=== PATIENT | female | born 1975 | race Caucasian/White ===

== ENCOUNTER 2021-01-30 13:14 | Emergency (ER) | payer OTHER, SELFPAY ==
[2021-01-30 13:30] VITALS: BP 134/76; PULSE 100; RESP 20; TEMP 36.6; O2SAT 99
--- NOTE | 2021-01-30 13:37 | ED.URI ---
HPI - URI/Sore Throat General Chief Complaint: Upper Respiratory Infection Stated Complaint: sore throat, achy, fatigue Time Seen by Provider: 01/30/21 13:37 Source: patient and RN notes reviewed Mode of arrival: ambulatory Limitations: no limitations History of Present Illness HPI Narrative: 45-year-old female presents to the [facility] with complaints of body aches, sore throat, headache. A coworker was diagnosed with Covid recently. He denies fevers, chest pain, shortness of breath. No abdominal pain, nausea, vomiting or diarrhea. Related Data Home Medications Medication Instructions Recorded Confirmed trazodone 100 mg PO HS 10/24/19 01/30/21 amitriptyline 75 mg PO DAILY 01/30/21 01/30/21 tizanidine 4 mg PO TID PRN 01/30/21 01/30/21 Allergies Allergy/AdvReac Type Severity Reaction Status Date / Time No Known Allergies Allergy Verified 01/30/21 13:48 Review of Systems Review of Systems: Narrative: CONSTITUTIONAL: Denies fever. Reports chills and sweats. EYES: Denies visual changes, redness, or discharge. ENT: Reports rhinorrhea, congestion, sore throat, or otalgia. CARDIOVASCULAR: Denies chest pain, palpitations, or edema. RESPIRATORY: Denies cough or dyspnea. GASTROINTESTINAL: Denies abdominal pain, nausea, vomiting, or diarrhea. GENITOURINARY: Denies dysuria or hematuria. SKIN: Denies rash or itching. MUSCULOSKELETAL: Denies back pain, joint pain. Reports generalized muscle pain PSYCHIATRIC: Denies anxiety or depression. All other systems reviewed are negative, except as documented in HPI. PMFSH Comments At the time of my signature, I reviewed and agree with the nursing past medical, surgical, social, and family history. There is no relevant family history pertinent to the patient complaint. Exam Narrative: Exam Narrative: GENERAL: This is a well-nourished, well-developed patient, in no apparent distress. HEAD: normocephalic, atraumatic. EYES: PERRL. Sclera clear/white. Vision is grossly intact. EARS: External ears normal, auditory canals clear and without drainage, TMs normal without perforation. Hearing grossly intact. NOSE: External nose normal with clear nasal discharge, nares without redness. THROAT: Mucous membranes moist, posterior pharynx clear. NECK: Neck supple, non-tender without lymphadenopathy, masses or thyromegaly. CARDIOVASCULAR: Regular rate and rhythm without murmurs, gallops, or rubs. RESPIRATORY: Clear to auscultation. Breath sounds equal bilaterally. No wheezes, rales, or rhonchi. GASTROINTESTINAL: Abdomen soft, non-tender, nondistended. SKIN: warm, intact with no suspicious lesions or rash, good texture and turgor. NEURO: awake, alert, and oriented to person, place and time. There were no obvious focal neurologic abnormalities. EXTREMITIES: No joint tenderness, effusion, or edema noted. BACK: Nontender without deformity. Course Vital Signs Vital signs: Vital Signs Temperature 98 F 01/30/21 13:30 Pulse Rate 100 01/30/21 13:30 Respiratory Rate 20 01/30/21 13:30 Blood Pressure 134/76 01/30/21 13:30 Pulse Oximetry 99 01/30/21 13:30 Temperature 98 F 01/30/21 13:30 Pulse Rate 100 01/30/21 13:30 Respiratory Rate 20 01/30/21 13:30 Blood Pressure 134/76 01/30/21 13:30 Pulse Oximetry 99 01/30/21 13:30 Reviewed MDM - URI/Sore Throat MDM Narrative Medical decision making narrative: Discharge instructions reviewed with patient, as well as provided in writing per nursing staff. The instructions also include specific and strict return/GO TO THE ER as well as f/u information. All questions have been answered, and the patient deny any further questions with discharge and discharge plan. Differential Diagnosis Differential diagnosis: Likely sinusitis, viral infection, bronchitis, influenza and pharyngitis Lab Data Labs: Lab Results 01/30/21 Range/Units 13:52 SARS-CoV-2 RNA (RT-PCR) Pending Strep Screen Presumptive Negat
[2021-01-31 18:33] LABS: SARS-CoV-2 RNA PCR Negative
== END 2021-01-30 14:05 | disposition home or self-care (01) ==
PROVIDERS: Emergency Provider Nurse Practitioner
DX: J06.9 Acute upper respiratory infection, unspecified (principal); Z20.822 Contact with and (suspected) exposure to COVID-19; K21.9 Gastro-esophageal reflux disease without esophagitis
CPT/HCPCS: 87081; 87880; 99213; C9803; G0463; U0003; U0005

== ENCOUNTER 2021-06-18 15:04 | Emergency (ER) | payer OTHER, SELFPAY ==
[2021-06-18 15:10] VITALS: BP 124/83; PULSE 110; RESP 18; TEMP 36.7; O2SAT 100
--- NOTE | 2021-06-18 15:15 | ED.EAR ---
HPI - Ear Problem General Chief complaint: Ear Stated complaint: ear infection Time Seen by Provider: 06/18/21 15:15 Source: patient Mode of arrival: ambulatory Limitations: no limitations History of Present Illness HPI Narrative: Gabriela Wilhelm is a 46 yo female who had recent shoulder surgery, [facility] her right ear. Her ear is painful since she had water in it from the [place] and her lips got sunburned and have not broken out in large fever blisters Related Data Home Medications Medication Instructions Recorded Confirmed trazodone 100 mg PO HS 10/24/19 06/18/21 amitriptyline 75 mg PO DAILY 01/30/21 06/18/21 tizanidine 4 mg PO TID PRN 01/30/21 06/18/21 esomeprazole magnesium [Nexium] 40 mg PO DAILY 06/18/21 06/18/21 oxycodone-acetaminophen 1 tablet PO Q6H PRN 06/18/21 06/18/21 Allergies Allergy/AdvReac Type Severity Reaction Status Date / Time No Known Allergies Allergy Verified 06/18/21 15:21 Review of Systems Review of Systems: CONSTITUTIONAL: Denies fever, chills, sweats. EYES: Denies visual changes, redness, discharge. ENT: Denies rhinorrhea, congestion, sore throat, R otalgia.Fever blisters of mouth CARDIOVASCULAR: Denies chest pain, palpitations, edema. RESPIRATORY: Denies dyspnea, wheezing, cough GASTROINTESTINAL: Denies abdominal pain, nausea, vomiting, diarrhea. GENITOURINARY: Denies dysuria, hematuria, abnormal discharge SKIN: Denies rash or itching. NEUROLOGIC: Denies numbness, or focal weakness. PSYCHIATRIC: Denies anxiety or depression. [facility] Past Medical History Medical History Bladder pain GERD (gastroesophageal reflux disease) Surgical History Surgical History History of arthroscopy of shoulder Social History Social History (Updated 06/18/21 @ 15:35 by Bree Avina CNP) Smoking status: Never smoker Alcohol intake: current Comments At time of signature, I agree with nursing past medical, surgical, social and family history. There is no relevant family history pertinent to the presenting complaint. Exam Narrative: GENERAL: This is a well-nourished, well-developed patient, in mild distress. HEAD: normocephalic, atraumatic. EYES: . Sclera clear/white. Vision is grossly intact. EARS: External ears normal, auditory canal L clear and R erythema without drainage, TMs normal without perforation. Hearing grossly intact. NOSE: External nose normal without nasal discharge, nares without redness, no rhinorrhea. THROAT: Mucous membranes moist, posterior pharynx pink, clustered fever blisters on lower lip and upper lip NECK: Neck supple, CARDIOVASCULAR: Regular rate and rhythm without murmurs, gallops, or rubs. RESPIRATORY: Clear to auscultation. Breath sounds equal bilaterally. No wheezes, rales, or rhonchi. GASTROINTESTINAL: Abdomen soft, non-tender, SKIN: warm, intact with no suspicious lesions or rash, good texture and turgor. NEURO: awake, alert, and oriented to person, place and time. There were no obvious focal neurologic abnormalities. Steady gait EXTREMITIES: Normal range of motion. BACK: Nontender without deformity Course Course Emergency Course: Patient comes with ear pain and fever blisters of lips Started on eardrops and acyclovir cream for mouth Vital Signs Vital signs: Vital Signs Temperature 98.0 F 06/18/21 15:10 Pulse Rate 110 H 06/18/21 15:10 Respiratory Rate 18 06/18/21 15:10 Blood Pressure 124/83 06/18/21 15:10 Pulse Oximetry 100 06/18/21 15:10 Temperature 98.0 F 06/18/21 15:24 Pulse Rate 110 H 06/18/21 15:24 Respiratory Rate 18 06/18/21 15:24 Blood Pressure 124/83 06/18/21 15:24 Pulse Oximetry 100 06/18/21 15:24 Medical Decision Making Differential Diagnosis Differential Diagnosis: Otitis media versus otitis externa versus malignant otitis externa versus HSV of the mouth ve
[2021-06-18 15:24] VITALS: BP 124/83; PULSE 110; RESP 18; TEMP 36.7; O2SAT 100
== END 2021-06-18 15:44 | disposition home or self-care (01) ==
PROVIDERS: Emergency Provider Nurse Practitioner
DX: B00.1 Herpesviral vesicular dermatitis (principal); H60.311 Diffuse otitis externa, right ear; K21.9 Gastro-esophageal reflux disease without esophagitis
CPT/HCPCS: 99213; G0463

== ENCOUNTER 2024-10-12 13:39 | Outpatient (CLI) | payer OTHER, SELFPAY | END 2024-10-12 13:40 | disposition home or self-care (01) | LOC: ANHSURGERY 13:44 | PROVIDERS: PCP Internal Medicine; Visit Provider Obstetrics & Gynecology | DX: N93.9 Abnormal uterine and vaginal bleeding, unspecified (principal) | CPT/HCPCS: 36415; 86850; 86900; 86901 ==

== ENCOUNTER 2024-10-19 00:09 | Day surgery (SDC) | payer OTHER, SELFPAY ==
[2024-10-07 12:42] VITALS: BMI 32.0
--- NOTE | 2024-10-07 12:43 | PC.NURSE ---
Report to the Outpatient Waiting Room, entrance under the green pavilion located off [facility], at time _1000_ on date _[id number]_. Planned Procedure Time: _1200_.? Time changes happen often and if your time is changed the preop area will call you the afternoon before. - You and your visitor will be asked to self-screen and do not enter if you have any COVID symptoms. Please call surgeon if you need to reschedule. - A mask is optional within the hospital at this time. Patients may have clear liquids (water, carbonated beverages, clear teas, apple juice) until 3 hours prior to surgery with a maximum of 20 ounces. - No food from midnight until time of surgery and no smoking. This includes no chewing gum, candy or mints. Take only the following medications with a SIP of water on the morning of surgery: ____None DO NOT STOP ANY OF YOUR OTHER PRESCRIPTION MEDICATIONS PRIOR TO SURGERY EXCEPT THE FOLLOWING Medications to discontinue per physician Aspirin Please check with Dr Barber if OK to take. Date to take last dose Please no make-up, nail estonian, hairspray, perfume, deodorant, or body powder the day of surgery.? No jewelry (including any body piercings) or valuables the day of surgery, leave them at home.? Please take a shower or bath the night before, or the morning of, surgery with an antibacterial soap.? Wear comfortable, loose fitting clothing.? - Jewelry must be removed prior to entering the operating room.? Rings and piercings that are not removed may be cut off. - The hospital will not accept responsibility for valuables.? - Please leave all valuables, including medications, at home the day of surgery. If you are going home after surgery, a licensed milk wagon driver must drive you home.? - NO public transportation without another adult if you receive anesthesia. - We recommend that an adult stay with you for 24 hours following discharge. - We also recommend that you do not drive, make important decision, drink alcoholic beverages, or take any drugs that were not prescribed by your health care provider for at least 24 hours after your discharge time. Follow any additional instructions given to you from your surgeon. Telephone instructions given to Burak__and asked if any additional questions and then verbalized understanding. Patient advised to call surgeon office or pre surgery nurse liaison [phone] if any additional questions.
--- NOTE | 2024-10-08 13:19 | PC.NURSE ---
Report to the Outpatient Waiting Room, entrance under the green pavilion located off [facility], at time _1000_ on date _[id number]_. Planned Procedure Time: _1200_.? Time changes happen often and if your time is changed the preop area will call you the afternoon before. - You and your visitor will be asked to self-screen and do not enter if you have any COVID symptoms. Please call surgeon if you need to reschedule. - A mask is optional within the hospital at this time. Patients may have clear liquids (water, carbonated beverages, clear teas, apple juice) until 3 hours prior to surgery with a maximum of 20 ounces. - No food from midnight until time of surgery and no smoking. This includes no chewing gum, candy or mints. Take only the following medications with a SIP of water on the morning of surgery: ____None DO NOT STOP ANY OF YOUR OTHER PRESCRIPTION MEDICATIONS PRIOR TO SURGERY EXCEPT THE FOLLOWING Medications to discontinue per physician Aspirin Date to take last aouy___[id number]____ Please no make-up, nail slovenian, hairspray, perfume, deodorant, or body powder the day of surgery.? No jewelry (including any body piercings) or valuables the day of surgery, leave them at home.? Please take a shower or bath the night before, or the morning of, surgery with an antibacterial soap.? Wear comfortable, loose fitting clothing.? - Jewelry must be removed prior to entering the operating room.? Rings and piercings that are not removed may be cut off. - The hospital will not accept responsibility for valuables.? - Please leave all valuables, including medications, at home the day of surgery. If you are going home after surgery, a licensed rental car ferry driver must drive you home.? - NO public transportation without another adult if you receive anesthesia. - We recommend that an adult stay with you for 24 hours following discharge. - We also recommend that you do not drive, make important decision, drink alcoholic beverages, or take any drugs that were not prescribed by your health care provider for at least 24 hours after your discharge time. Follow any additional instructions given to you from your surgeon. Telephone instructions given to _Gabriela__and asked if any additional questions and then verbalized understanding. Patient advised to call surgeon office or pre surgery nurse liaison [phone] if any additional questions.
--- NOTE | 2024-10-16 11:12 | PM.IMHP ---
H&P: HPI History of Present Illness Date/Time: 10/16/24 11:12 Chief Complaint: stress incontinence Narrative: symptomatic stress incontinence. Desires intervention. We will do this with a concomitant hysterectomy for dysfunctional uterine bleeding Review of Systems Review of Systems: All systems reviewed & are unremarkable except as noted in HPI and below PMFSH Past Medical History Medical History KOJO positive Bladder pain GERD (gastroesophageal reflux disease) Inflammatory arthritis Rotator cuff arthropathy of both shoulders Surgical History Surgical History H/O right knee surgery H/O right wrist surgery H/O shoulder surgery History of arthroscopy of shoulder History of cholecystectomy History of reduction mammoplasty Previous section Family History Family History Mother Depression Thyroid disorder Grandparent Cancer Diabetes mellitus Hypertension Cerebrovascular accident Father Alcoholism Cancer Heart problem Social History Social History Smoking packs per day: 1 Smoking cigarettes per day: 20.0 Years smoked: 15 Smoking pack-years: 15.00 Smoking status: Former smoker Tobacco type: cigarettes Smoking end date: 10/07/12 Alcohol intake: current Alcohol use details: OCCASIONAL Substance use: never Substance use type: does not use Living arrangements: with family Spiritual care concerns: No Meds Home Medications and Allergies Home Medications Medication Instructions Recorded Confirmed Type trazodone 100 mg tablet 100 mg PO HS 10/24/19 10/07/24 History amitriptyline 75 mg tablet 150 mg PO HS 05/15/22 10/07/24 History aspirin 81 mg tablet,delayed 81 mg PO Q48H 10/07/24 10/07/24 History release esomeprazole magnesium 20 mg 20 mg PO DAILY 10/07/24 10/07/24 History capsule,delayed release (Nexium) lubiprostone 24 mcg capsule 24 mcg PO BID 10/07/24 10/07/24 History ondansetron HCl 4 mg tablet 4 mg PO TID PRN Nausea 10/07/24 10/07/24 History pentosan polysulfate sodium 100 mg 100 mg PO TID 10/07/24 10/07/24 History capsule (Elmiron) topiramate 50 mg tablet 50 mg PO BID 10/07/24 10/07/24 History Allergies Allergy/AdvReac Type Severity Reaction Status Date / Time No Known Allergies Allergy Verified 10/07/24 12:30 Exam Narrative: no acute distress alert and oriented x3 urethral hypermobility Assessment and Plan Assessment and plan (1) TIGRE (stress urinary incontinence, female): Code(s): N39.3 - Stress incontinence (female) (male) Status: Acute Assessment and Plan: plan for urethral sling concomitantly with a hysterectomy for dysfunctional uterine bleeding. Understands risks of bleeding, infection, damage surrounding organs, damage to the urinary tract, vaginal mesh extrusion, urinary tract mesh erosion, obstructive voiding requiring secondary procedure, hip and leg pain, dyspareunia. She also understands it will not help and may even exacerbate her chronic pelvic pain. Agrees to proceed
[2024-10-19] VITALS (11 sets, daily range): BP systolic 97–120; BP diastolic 58–88; PULSE 81–103; RESP 11–21; TEMP 36.2–36.8; O2SAT 96–100
--- NOTE | 2024-10-19 07:10 | WPDHPUPDATE1 ---
History and Physical Update Update Date/Time: 10/19/24 07:10 History and Physical has been reviewed, including an updated exam of the patient. There are NO changes in the patient's condition. Risks, benefits, and alternatives have been discussed and questions answered. Patient agrees to proceed with procedure.
[2024-10-19] MEDS: ACETAMINOPHEN 500 MG TABLET 1000 MG PO ×3 (10:51→23:21)
[2024-10-19] MEDS: KETOROLAC 15 MG/ML VIAL (*BKC) IV PUSH (10:53)
[2024-10-19] MEDS: LACTATED RINGERS 1,000 ML 30 ML IV CONT ×3 (10:56→15:05)
--- NOTE | 2024-10-19 11:39 | P.PNAN_ITS ---
Anes - Initial Pre Proc Eval Procedure: Operation Date: 10/19/24 12:00 Proposed Procedures p Urethral Sling - Vinayak Lin MD s Robotic Assisted Laparoscopic Hysterectomy with Bilateral Salpingo- oophorectomy - Gerald Barber MD Date/Time: 10/19/24 11:39 Surgeon: Vinayak Lin MD Pre Op Diagnosis: Stress Incont, Abnormal uterine bleeding Patient Data Age: 49 Gender: F Height: 1.57 m Weight: 81.5 kg Last Vital Signs Temp 36.2 C L 10/19/24 11:12 Pulse 96 10/19/24 11:12 Resp 20 10/19/24 11:12 BP 115/88 10/19/24 11:12 Pulse Ox 100 10/19/24 11:12 O2 Del Method Room Air 10/19/24 11:12 Allergies Allergy/AdvReac Type Severity Reaction Status Date / Time No Known Allergies Allergy Verified 10/07/24 12:30 Home Medications Medication Instructions Recorded Confirmed Type trazodone 100 mg tablet 100 mg PO HS 10/24/19 10/07/24 History amitriptyline 75 mg tablet 150 mg PO HS 05/15/22 10/19/24 History aspirin 81 mg tablet,delayed 81 mg PO Q48H 10/07/24 10/19/24 History release esomeprazole magnesium 20 mg 20 mg PO DAILY 10/07/24 10/19/24 History capsule,delayed release (Nexium) lubiprostone 24 mcg capsule 24 mcg PO BID 10/07/24 10/19/24 History ondansetron HCl 4 mg tablet 4 mg PO TID PRN Nausea 10/07/24 10/07/24 History pentosan polysulfate sodium 100 mg 100 mg PO TID 10/07/24 10/07/24 History capsule (Elmiron) topiramate 50 mg tablet 50 mg PO BID 10/07/24 10/19/24 History Patient hx anesthesia problems: none Family hx anesthesia problems: none Results Review: All pre-operative results and documents have been reviewed as part of the pre- operative evaluation. [facility] Past Medical History Medical History KOJO positive Bladder pain GERD (gastroesophageal reflux disease) Inflammatory arthritis Rotator cuff arthropathy of both shoulders Surgical History Surgical History H/O right knee surgery H/O right wrist surgery H/O shoulder surgery History of arthroscopy of shoulder History of cholecystectomy History of reduction mammoplasty Previous section Family History Family History Mother Depression Thyroid disorder Grandparent Cancer Diabetes mellitus Hypertension Cerebrovascular accident Father Alcoholism Cancer Heart problem Social History Social History Smoking packs per day: 1 Smoking cigarettes per day: 20.0 Years smoked: 15 Smoking pack-years: 15.00 Smoking status: Former smoker Tobacco type: cigarettes Smoking end date: 10/07/12 Alcohol intake: current Alcohol use details: OCCASIONAL Substance use: never Substance use type: does not use Living arrangements: with family Spiritual care concerns: No Anes - Eval Final PreProcedure Day of Procedure 10/19/24 11:39 Patient weight: obese Lungs: normal air movement Neurological: alert and oriented Last oral intake: >/= 8 hours ASA classification: II Emergent: no Anesthetic plan: proceed Anesthesia type and monitoring: general and standard monitoring Results Review: All pre-operative results and documents have been reviewed as part of the pre- operative evaluation. Informed Consent: The patient's anesthetic plan and its attendant risks and benefits were d iscussed with the patient/family/POA. Questions were solicited and answers provided to the satisfaction of the patient/family/POA.
--- NOTE | 2024-10-19 12:22 | P.HP_ITS ---
H&P: HPI History of Present Illness Date/Time: 10/19/24 12:22 Chief Complaint: abnormal uterine bleeding Narrative: This patient is a 49-year-old female with abnormal uterine bleeding. We agreed to perform robotic assisted total hysterectomy with bilateral salpingo- oophorectomy she will also have a suburethral sling placed by Dr. Lin. The patient understands the details of the procedure. The procedure has been explained in detail. She understands the risks. She understands that injuries may occur that result in hospitalization, more surgery, and severe illness. She understands risk of hemorrhage and infection. She denies any chest pain or shortness of breath. She denies any nausea, vomiting, fever, chills. Review of Systems Review of Systems: All systems reviewed & are unremarkable except as noted in HPI and below Constitutional: Constitutional: Denies chills, Denies fatigue, Denies fever(s) and Denies weakness Eyes: Eyes: Denies blurry vision, Denies change in vision, Denies loss of peripheral vision, Denies loss of vision, Denies other visual disturbances and Denies eye pain ENT: Denies vertigo, Denies dizziness, Denies hearing loss, Denies mouth pain, Denies nasal obstruction, Denies neck mass and Denies neck pain Cardiovascular: Cardiovascular: Denies chest pain, Denies diaphoresis, Denies syncope, Denies leg edema and Denies dyspnea Respiratory: Respiratory: Denies chest congestion, Denies cough, Denies hemoptysis, Denies dyspnea and Denies wheezing Gastrointestinal: Gastrointestinal: Denies abdominal pain, Denies constipation, Denies diarrhea, Denies nausea and Denies vomiting Genitourinary: Genitourinary: Denies hematuria, Denies change in libido, Denies nocturia, Denies genital lesions, Denies flank pain and Denies urinary urgency Musculoskeletal: Musculoskeletal: Denies abnormal gait, Denies back pain, Denies myalgias, Denies arthralgias, Denies joint swelling, Denies muscle weakness and Denies neck pain Integumentary/Breasts: Skin/Breast: Denies swelling, Denies breast pain, Denies breast mass, Denies dry skin, Denies nipple discharge, Denies unusual bruising and Denies jaundice Neurologic: Denies Neuro-related abnormal movements, Denies Abnormal speech present, Denies abnormal gait, Denies behavioral changes, Denies confusion, Denies vertigo, Denies dizziness, Denies syncope, Denies loss of vision, Denies memory loss, Denies convulsions and Denies weakness Psychiatric: Psychiatric: Denies abnormal sleep pattern, Denies behavioral changes, Denies change in libido, Denies confusion, Denies depression, Denies anhedonia and Denies memory loss Endocrine: Endocrine: Reports no additional endocrine complaints, Denies change in libido and Denies fatigue Hematologic/Lymphatic: Hematologic/Lymphatic: Reports no additional hematologic/lymphatic complaints Allergic/Immunologic: Allergic/Immunologic: Reports no additional allergic/immunologic complaints and Denies wheezing PMFSH Past Medical History Medical History KOJO positive Bladder pain GERD (gastroesophageal reflux disease) Inflammatory arthritis Rotator cuff arthropathy of both shoulders Surgical History Surgical History H/O right knee surgery H/O right wrist surgery H/O shoulder surgery History of arthroscopy of shoulder History of cholecystectomy History of reduction mammoplasty Previous section Family History Family History Mother Depression Thyroid disorder Grandparent Cancer Diabetes mellitus Hypertension Cerebrovascular accident Father Alcoholism Cancer Heart problem Social History Social History Smoking packs per day: 1 Smoking cigarettes per day: 20.0 Years smoked: 15 Smoking pack-years: 15.00 Smoking status: Former smoker Tobacco type: cigarettes Smoking end date: 10/07/12 Alcohol intake: current Alcohol use details: OCCASIONAL Substance use: never Substance use type: does not use Living arrangements: with family Spiritual care concerns: No Meds Home Medications and Allergies Home Medications Medication Instructions Recorded Confirmed Type trazodone 100 mg tablet 100 mg PO HS 10/24/19 10/07/24 History amitriptyline 75 mg tablet 150 mg PO HS 05/15/22 10/19/24 History aspirin 81 mg tablet,delayed 81 mg PO Q48H 10/07/24 10/19/24 History release esomeprazole magnesium 20 mg 20 mg PO DAILY 10/07/24 10/19/24 History capsule,delayed release (Nexium) lubiprostone 24 mcg capsule 24 mcg PO BID 10/07/24 10/19/24 History ondansetron HCl 4 mg tablet 4 mg PO TID PRN Nausea 10/07/24 10/07/24 History pentosan polysulfate sodium 100 mg 100 mg PO TID 10/07/24 10/07/24 History capsule (Elmiron) topiramate 50 mg tablet 50 mg PO BID 10/07/24 10/19/24 History Allergies Allergy/AdvReac Type Severity Reaction Status Date / Time No Known Allergies Allergy Verified 10/07/24 12:30 Vital Signs Vital Signs - 24 hr 10/19/24 11:12 Temperature 97.1 F L Pulse Rate 96 Respiratory Rate 20 Blood Pressure 115/88 Pulse Oximetry 100 Oxygen Delivery Room Air Exam Const: General: cooperative, healthy appearing, comfortable and no acute distress Orientation/consciousness: oriented to person, oriented to place and oriented to time HENMT: Head: normal to inspection Ears: external ears normal Face/Nose/Sinus: Normal external nose present and normal facial exam Face and sinus: normal facial exam Eyes: General: appearance normal, both eyes and all related structures Neck: Neck: normal visual inspection, trachea midline and supple Resp: Auscultation: clear to auscultation bilaterally, no crackles, no rales, no rhonchi and no wheezes Cardio: Rate: regular rate Rhythm: regular rhythm Heart sounds: no click, no murmurs and no rubs GI: GI Palp: No abdominal tenderness, No Soft to palpation, No Tenderness to palpation present (GI) and No Palpable mass present Auscultation: normal bow el sounds Skin: General skin exam: normal color and no rashes or lesions noted Neuro: General: oriented to person, oriented to place and oriented to time Extrem: General: normal to inspection, no joint enlargement, no clubbing, cyanosis or edema, no pedal edema and no calf tenderness Psych: Appearance: grossly normal Mental Status: mental status grossly n ormal Speech and movement: Normal speech and movement present Assessment and Plan Assessment and plan (1) Abnormal uterine bleeding: Code(s): N93.9 - Abnormal uterine and vaginal bleeding, unspecified Status: Acute Assessment and Plan: This patient is a 49-year-old female with abnormal uterine bleeding. We agreed to perform robotic assisted total hysterectomy with bilateral salpingo- oophorectomy she will also have a suburethral sling placed by Dr. Lin. she understands the risks, benefits, and alternatives. She has completed the informed consent process and is ready to proceed
--- NOTE | 2024-10-19 12:26 | WPDHPUPDATE1 ---
History and Physical Update Update Date/Time: 10/19/24 12:26 History and Physical has been reviewed, including an updated exam of the patient. There are NO changes in the patient's condition. Risks, benefits, and alternatives have been discussed and questions answered. Patient agrees to proceed with procedure.
[2024-10-19] MEDS: ceFAZolin 2 GM/D5W 50 ML 2 GM/50 ML BAG IVPB (12:30)
[2024-10-19] MEDS: BUPIVACAINE/EPINEPHRINE 0.5% 50 ML VIAL 10 ML INFILTRATE (13:24)
--- NOTE | 2024-10-19 14:39 | W.PM.PROC2 ---
Procedure Note - Detailed Date of Procedure 10/19/24 Pre-op Diagnosis Stress Incont, Abnormal uterine bleeding Post-op Diagnosis Same Procedure Performed Robot assisted Total hysterectomy with bilateral Salpingo-oophorectomy. Surgeon Gerald Barber MD Anesthesia General Indications pelvic pain Findings normal-appearing uterus tubes and ovaries. Normal appearing vulva vagina and cervix. Description of Procedure This patient was taken to the operating room. She was prepped and draped in the dorsal lithotomy position after induction of general anesthesia. The uterine manipulator and Colton cup were placed. This was done with a speculum and tenaculum. The speculum was placed. The cervix was grasped with a tenaculum. The stay sutures were placed at 3 and 9:00 a.m.. The stay sutures of 0 Vicryl were tied to the appropriately Size scope after it was slipped around the cervix.. The tip of the JIM manipulator was placed in the intrauterine cavity. The cup was slid into place around the cervix and into the fornices. It was locked into place. The sutures were then wrapped around the handle and tied under tension. A 8 mm skin incision was made in the left upper quadrant the abdomen. a 5 mm Visiport trocar was inserted into abdominal cavity and pneumoperitoneum was achieved. A 8 mm supraumbilical incision was made and a 8 mm trocar was inserted into the intrauterine cavity under direct visualization of the scope. an 8 mm incision was made in the right upper quadrant of the abdomen and an 8 mm robotic trocar was placed the inter uterine cavity under direct visualization the scope. An 11 mm trocar was inserted in the right upper quadrant of the abdomen rectal is a cystoscope after an incision was made there as well. The robot was docked. Electronic Orientation of the robot was performed. Bilateral ureteral lysis was performed. This was done from the pelvic brim down to the uterine artery. This was done with careful dissection using sharp and blunt dissection. The fallopian tubes and ovaries were removed bilaterally. The infundibulopelvic ligament was isolated after identification of the ureter. It was cauterized and transected with the vessel sealer fashion. The mesosalpinx on lateral of the ovary was cauterized transected the vessel sealer. In a stepwise fashion along the lateral aspects of the uterus the round ligament and broad ligaments were cauterized transected down to the level of the uterine arteries. A bladder flap was created in the bladder was moved distally to the end of the cervix and over the Colton cup. The bilateral uterine arteries were cauterized and transected. Colpotomy was then performed. In a circumferential fashion the vagina was transected using unipolar cautery. The incision was made down on the Colton cup. The uterus and cervix were taken out through the vagina. A pneumo occluder was placed in the vagina. The vaginal cuff was closed with a 0 V lock suture in a running fashion. The pelvis was irrigated with copious amounts antibiotic irrigation. The ureters were again examined and found to be intact and flowing freely under the uterine arteries into the bladder. The bladder was intact. It was examined directly. The vagina was irrigated with Betadine solution after removal of the Pneumo occluder. the trocars were removed after the robot was undocked. The skin was closed with subacute or Dermabond. The patient was taken to recovery room. She was stable condition. Sponge lap and needle counts were correct x2. Suburethral sling was performed by Dr. Lin after the hysterotomy Estimated Blood Loss -25.0 Urine Output -125.0 Drains Yes Packing No Pathology Yes Complications No immediate complications Condition Stable Disposition Floor
--- NOTE | 2024-10-19 14:59 | W.PM.PROC2 ---
Procedure Note - Detailed Date of Procedure 10/19/24 Pre-op Diagnosis Stress incontinence Post-op Diagnosis Same Procedure Performed mid urethral sling cystoscopy Surgeon Vinayak Lin MD Anesthesia General Indications This is a female with confirm stress urinary incontinence. She desires surgical correction. She understands the risks of bleeding, infection, injury to the urinary tract, vaginal mesh extrusion, urinary tract mesh erosion, obstructive voiding requiring a secondary procedure, hip and leg pain, dyspareunia, inability to improve overactive bladder symptoms. She agrees to proceed. She is going to do this in combination with hysterectomy for dysfunctional uterine bleeding Description of Procedure I entered the room to perform her procedure after her hysterectomy. She was correctly identified. Informed consent was already obtained. She was given appropriate perioperative antibiotics. A time-out performed. I marked out the site of the inner thigh incisions. I anesthetized the skin and made those incisions. I anesthetized the anterior vaginal wall over the mid urethra. I made a 1 cm incision. I dissected out laterally taking great care not to injure the refilled vaginal wall. I passed the helical trocars. First on the left. Then on the right. I did this from the thigh incision towards the vaginal incision. The sling was connected to the trocars and brought out through the thigh incision. I tensioned the sling appropriately. I cut and the plastic sheaths. I then closed the incision with 2 0 Vicryl. On cystoscopy there is no tumors or surgical artifact. There was no surgical artifact in the urethra. Both ureters were seen to excrete clear yellow urine I cut the excess sling material. Close incisions with glue. She was awakened and transferred to the PACU in stable condition. Implants Urethral sling Estimated Blood Loss 10 Drains No Packing No Pathology None sent Complications No immediate complications Condition Stable Disposition PACU
[2024-10-19] MEDS: SCOPOLAMINE 1 MG PATCH 1 PATCH TRANSDERM (15:05)
[2024-10-19] MEDS: SIMETHICONE 80 MG TAB.CHEW PO (17:32)
[2024-10-19] MEDS: DEXTROSE 5%/0.45% SOD CHL 1,000 ML 125 ML IV CONT (17:32)
[2024-10-19] MEDS: DOCUSATE SODIUM 100 MG CAPSULE PO (17:34)
[2024-10-19] MEDS: KETOROLAC 30 MG/ML VIAL (*BKC) IV PUSH ×2 (17:34→23:22)
--- NOTE | 2024-10-19 18:19 | ADMGEN ---
This patient, Gabriela Wilhelm, was admitted to OB 2nd Floor Room 283-00. Patient/family oriented to hospital policies and general routines including ID bracelet, bed and alarms, visiting hours, pain management, procedures, bathroom and other care routines, personal items, smoking policy, room service/diet, and visiting hours. Information on how to activate the Rapid Response Team has been discussed. Patient/Family are encouraged to report perceived risks to care and to ask questions if they do not understand what they are told or what they should do.
[2024-10-19] MEDS: oxyCODONE HCL (*CRX) 5 MG TAB IR PO (19:40)
[2024-10-19] MEDS: traZODone HCL 50 MG TABLET 100 MG PO (21:34)
[2024-10-19] MEDS: AMITRIPTYLINE HCL 25 MG TABLET 150 MG PO (21:36)
[2024-10-19] MEDS: TOPIRAMATE 25 MG TABLET 50 MG PO (21:36)
[2024-10-20] MEDS: ACETAMINOPHEN 500 MG TABLET 1000 MG PO (04:25)
[2024-10-20] MEDS: KETOROLAC 30 MG/ML VIAL (*BKC) IV PUSH (04:26)
[2024-10-20 04:36] VITALS: BP 114/70; PULSE 103; RESP 20; TEMP 37.1; O2SAT 99
[2024-10-20] MEDS: SIMETHICONE 80 MG TAB.CHEW PO (07:55)
[2024-10-20] MEDS: oxyCODONE HCL (*CRX) 5 MG TAB IR PO (07:55)
[2024-10-20 08:05] VITALS: BP 100/55; PULSE 105; RESP 16; TEMP 37.3; O2SAT 98
[2024-10-20] MEDS: PANTOPRAZOLE 40 MG TABLET PO (08:13)
[2024-10-20] MEDS: DOCUSATE SODIUM 100 MG CAPSULE PO (08:13)
[2024-10-20] MEDS: TOPIRAMATE 25 MG TABLET 50 MG PO (08:13)
[2024-10-20] MEDS: ASPIRIN 81 MG ENTERIC TABLET PO (08:13)
[2024-10-20] MEDS: LUBIPROSTONE 24 MCG CAPSULE PO (08:13)
--- NOTE | 2024-10-20 08:22 | P.PNOB_ITS ---
[employer] - A/P Postoperative Procedures: Procedures Operation Date: 10/19/24 12:00 Actual Procedure Side Surgeon p Urethral Sling Not Applicable Vinayak Lin MD s Robotic Assisted Laparoscopic Hysterectomy with Bilateral Salpingo- oophorectomy Bilateral Gerald Barber MD Postoperative day: 1 Postoperative status: doing well Postoperative plan: see orders Time Spent With Patient Time: Total time spent is greater than 50% in coordination of care (as documented) at patient's floor/unit and/or counseling patient: Time with patient: less than 15 minutes [employer]- PN:Subj Post-Op Subjective Date/time seen: 10/20/24 08:22 Subjective: patient reports feeling better, patient has no complaints and pain is well controlled Exam Const: General: healthy appearing, comfortable and no acute distress Resp: Auscultation: clear to auscultation bilaterally, no rales, no rhonchi and no wheezes Cardio: Rate: regular rate Heart sounds: no click, no murmurs and no rubs GI: Inspection: non-distended Auscultation: normal bowel sounds Extrem: General: normal to inspection, no pedal edema and no calf tenderness [employer] - PN: Obj Data Vital Signs Vital Signs: Vital Signs - 24 hr 10/19/24 11:12 10/19/24 15:05 10/19/24 15:20 Temperature 97.1 F L 97.3 F L Pulse Rate 96 84 85 Respiratory Rate 20 12 21 H Blood Pressure 115/88 117/79 113/77 Pulse Oximetry 100 100 100 Oxygen Delivery Room Air Simple Face Mask Simple Face Mask Oxygen Flow Rate 10 10 10/19/24 15:35 10/19/24 15:50 10/19/24 16:05 Temperature Pulse Rate 86 86 84 Respiratory Rate 11 L 13 12 Blood Pressure 112/75 97/58 L 98/69 L Pulse Oximetry 100 100 100 Oxygen Delivery Room Air Room Air Room Air Oxygen Flow Rate 10/19/24 16:20 10/19/24 16:35 10/19/24 17:00 Temperature 97.8 F Pulse Rate 81 84 83 Respiratory Rate 12 20 17 Blood Pressure 99/67 L 102/72 101/70 Pulse Oximetry 99 99 99 Oxygen Delivery Room Air Room Air Oxygen Flow Rate 10/19/24 17:00 10/19/24 19:42 10/19/24 23:30 Temperature 97.4 F L 98.2 F Pulse Rate 84 96 103 H Respiratory Rate 20 Blood Pressure 120/73 117/84 Pulse Oximetry 99 96 97 Oxygen Delivery Room Air Oxygen Flow Rate 10/20/24 04:36 10/20/24 04:36 Temperature 98.7 F Pulse Rate 103 H 103 H Respiratory Rate 20 Blood Pressure 114/70 Pulse Oximetry 99 99 Oxygen Delivery Room Air Oxygen Flow Rate Intake/Output Intake/Output: Intake & Output 10/17/24 10/18/24 10/19/24 10/20/24 23:59 23:59 23:59 23:59 Intake Total 750 600 Output Total 1400 2200 Balance -650 -1600 Meds/Results Medications: Active Medications Generic Name Dose Route Start Last Admin Trade Name Freq PRN Reason Stop Dose Admin Acetaminophen 1,000 mg 10/19/24 18:00 10/20/24 04:25 Acetaminophen 500 Mg Tablet PO 1,000 mg Q6HR ELIOT Administration Amitriptyline HCl 150 mg 10/19/24 21:00 10/19/24 21:36 Amitriptyline Hcl 25 Mg Tablet PO 150 mg HS ELIOT Administration Aspirin 81 mg 10/20/24 09:00 10/20/24 08:13 Aspirin 81 Mg Enteric Tablet PO 81 mg Q48H ELIOT Administration Docusate Sodium 100 mg 10/19/24 17:00 10/20/24 08:13 Docusate Sodium 100 Mg Capsule PO 100 mg BID ELIOT Administration Dextrose/Sodium Chloride 1,000 mls @ 125 mls/hr 10/19/24 16:37 10/19/24 17:32 Dextrose 5% Sodium Chloride 0.45% IV CONT 125 mls/hr .Q8H ELIOT Administration Ibuprofen 600 mg 10/20/24 12:00 Ibuprofen 600 Mg Tablet PO Q6HR ELIOT Lubiprostone 24 mcg 10/19/24 17:00 10/20/24 08:13 Lubiprostone 24 Mcg Capsule PO 24 mcg BID ELIOT Administration Miscellaneous Information 0 each 10/19/24 00:01 10/19/24 19:18 Clarify Correct Pentosan Dosing Schedule XX 11/18/24 00:00 Not Given CLARIFY ELIOT Naloxone HCl 0.1 mg 10/19/24 16:37 Naloxone Hcl 0.4 Mg/Ml Vial IV PUSH Q2M PRN Respiratory rate less than 10 Ondansetron HCl 4 mg 10/19/24 16:37 Ondansetron Hcl Odt 4 Mg Tablet PO TID PRN Nausea Ondansetron HCl 4 mg 10/19/24 16:37 Ondansetron Inj 4 Mg/2 Ml Vial IV PUSH Q6H PRN Nausea And Vomiting Oxycodone HCl 5 mg 10/19/24 16:37 10/20/24 07:55 Oxycodone Hcl (*Crx) 5 Mg Tab Ir PO 5 mg Q4H PRN Administration Pain Rated 4-6 Oxycodone HCl 10 mg 10/19/24 16:37 Oxycodone Hcl (*Crx) 5 Mg Tab Ir PO Q6H PRN Pain Rated 7-10 Pantoprazole Sodium 40 mg 10/20/24 09:00 10/20/24 08:13 Pantoprazole 40 Mg Tablet PO 40 mg QAM ELIOT Administration Pentosan Polysulfate Sodium 100 mg 10/19/24 17:00 Pentosan Polysulfate Sodium 100 Mg Capsule PO TID ELIOT Simethicone 80 mg 10/19/24 17:00 10/20/24 07:55 Simethicone 80 Mg Tab.Chew PO 80 mg TIDWM ELIOT Administration Topiramate 50 mg 10/19/24 21:00 10/20/24 08:13 Topiramate 25 Mg Tablet PO 50 mg Q12HR ELIOT Administration Trazodone HCl 100 mg 10/19/24 21:00 10/19/24 21:34 Trazodone Hcl 50 Mg Tablet PO 100 mg HS ELIOT Administration
--- NOTE | 2024-10-20 10:28 | PC.NURSE ---
This nurse called to let the patient know that she left her discharge papers, patient said she will come back when she sees her OB to pick them up.
== END 2024-10-20 10:14 | disposition home or self-care (01) ==
LOC: ANHSURGERY 09:52 → ANHOB2 16:41
PROVIDERS: Obstetrics & Gynecology; PCP Internal Medicine; Visit Provider Urology
PROC: (CPT 57288; principal; 2024-10-19 12:00)
PROC: (CPT 58571; 2024-10-19 12:00)
DX: N39.3 Stress incontinence (female) (male) (principal); N80.03 Adenomyosis of the uterus; N83.292 Other ovarian cyst, left side; N83.291 Other ovarian cyst, right side; N72 Inflammatory disease of cervix uteri; N83.8 Other noninflammatory disorders of ovary, fallopian tube and broad ligament; G89.18 Other acute postprocedural pain; K21.9 Gastro-esophageal reflux disease without esophagitis; M13.80 Other specified arthritis, unspecified site; E66.9 Obesity, unspecified; Z68.32 Body mass index [BMI] 32.0-32.9, adult; Z79.82 Long term (current) use of aspirin; Z98.890 Other specified postprocedural states; Z90.49 Acquired absence of other specified parts of digestive tract; Z87.891 Personal history of nicotine dependence; Z80.9 Family history of malignant neoplasm, unspecified; Z82.49 Family history of ischemic heart disease and other diseases of the circulatory system
CPT/HCPCS: 58571; 57288; S2900; 88307; A9270; C1771; J0690; J1100; J1171; J1885; J2003; J2250; J2405; J2704; J3010; J7030; J7120; Q9968